=== PATIENT | male | born 1995 | race Caucasian/White ===

== ENCOUNTER 2017-12-02 18:37 | Emergency (ER) | payer OTHER ==
[2017-12-02 18:57] VITALS: RESP 16; TEMP 98.4; O2SAT 99
[2017-12-02] MEDS ORDERED: Oxycodone/Acetaminophen 5/325 mg Tab PO ONE (19:47)
[2017-12-02] MEDS ORDERED: Oxycodone/Acetaminophen 5/325 mg Tab ONE (19:57)
[2017-12-02 21:09] LABS: BASO % 0.4 % (0.0-2.0); EOS # 0.1 K/uL (0.0-0.7); EOS % 1.7 % (0.0-4.0); HEMOGLOBIN 15.4 g/dL (12.0-18.0); LYMPH # 1.9 K/uL (1.0-4.3); LYMPH % 32.5 % (20.0-40.0); MEAN CELL VOLUME 90.7 fl (80.0-94.0); MEAN CORPUSCULAR HEMOGLOBIN 30.8 pg (27.0-31.0); MEAN CORPUSCULAR HGB CONC 33.9 g/dL (33.0-37.0); MEAN PLATELET VOLUME 7.5 fl (7.2-11.7); MONO # 0.5 K/uL (0.0-0.8); MONO % 8.7 % (0.0-10.0); NEUT # 3.2 K/uL (1.8-7.0); NEUT % 56.7 % (50.0-75.0); NRBC % 0.1 % (0.0-0.0); RBC 4.99 Mil/uL (4.40-5.90); RED CELL DISTRIBUTION WIDTH 12.8 % (11.5-14.5); WHITE BLOOD COUNT 5.7 K/uL (4.8-10.8)
--- NOTE | 2017-12-02 21:15 | ED PDOC ---
Lower Extremity Pain/Injury Time Seen by Provider: 12/02/17 19:12 Chief Complaint (Nursing): Lower Extremity Problem/Injury Chief Complaint (Provider): Right great toe pain History Per: Patient History/Exam Limitations: no limitations Onset/Duration Of Symptoms: Days (2) Current Symptoms Are (Timing): Still Present Additional History Per: Patient Additional Complaint(s): 22yo male, comes to ER with complaints of right great toe nail pain x 2 days. Patient states he thought it was an ingrown toe nail and was evaluated by his doctor who gave him Bactrim. Patient states he took the bactrim and feels as if the symptoms have worsened; he reports redness, swelling and increased pain to the right great toe. Patient states he took Motrin with mild relief of pain. Patient denies any injuries, fever, or chills. He has no other complaints. PMD: In [place] Past Medical History Reviewed: Historical Data, Nursing Documentation, Vital Signs Vital Signs: Last Vital Signs Temp 98.4 F 12/02/17 18:55 Pulse 82 12/02/17 18:55 Resp 16 12/02/17 18:55 BP 128/74 12/02/17 18:55 Pulse Ox 99 12/02/17 18:55 - Medical History PMH: No Chronic Diseases Denies: Chronic Kidney Disease - Surgical History Surgical History: No Surg Hx - Family History Family History: States: No Known Family Hx - Immunization History Hx Tetanus Toxoid Vaccination: No Hx Influenza Vaccination: No Hx Pneumococcal Vaccination: No - Home Medications Home Medications: Ambulatory Orders Medication Instructions Recorded traMADol [Ultram] 50 mg PO TID #9 tab 12/02/17 - Allergies Allergies/Adverse Reactions: Allergies Allergy/AdvReac Type Severity Reaction Status Date / Time Penicillins Allergy RASH Verified 12/02/17 18:55 Review of Systems ROS Statement: Except As Marked, All Systems Reviewed And Found Negative Constitutional: Negative for: Fever, Chills Musculoskeletal: Positive for: Other (pain, swelling and redness to right great toe) Physical Exam - Reviewed Nursing Documentation Reviewed: Yes Vital Signs Reviewed: Yes - Physical Exam Appears: Positive for: Non-toxic, No Acute Distress Head Exam: Positive for: ATRAUMATIC, NORMAL INSPECTION, NORMOCEPHALIC Skin: Positive for: Normal Color Eye Exam: Positive for: Normal appearance, EOMI Pulses-Dorsalis Pedis (R): 2+ Extremity: Positive for: Normal ROM (FROM right foot and digits on right foot), Tenderness (diffuse tenderness to right great toe), Capillary Refill (< 2 seconds), Swelling (swelling and erythema to right great toe; erythema also extends from toe to dorsum of foot towards the vasquez.). Negative for: Pedal Edema, Calf Tenderness, Deformity Neurologic/Psych: Positive for: Alert, Oriented (x 3) - Laboratory Results Result Diagrams: 12/02/17 20:39 12/02/17 20:39 - ECG O2 Sat by Pulse Oximetry: 99 (RA) Pulse Ox Interpretation: Normal Medical Decision Making Medical Decision Making: Impression: Paronychia, possible cellulitis Plan: * Labs * Percocet 1 tab PO * XR Right foot 2010 Podiatry resident consulted, and will evaluate patient in ER. 2202 Patient seen and evaluated by podiatry resident and patient to be discharged home. Patient placed in surgical shoe by podiatry resident and instructed to follow up with Dr. Wiley in her office. Patient instructed to continue taking Bactrim as prescribed and informed to use pain medication as prescribed. Scribe Attestation: Documented by Judy Betancourt, acting as a scribe for Sophy Mares MD. Provider Scribe Attestation: All medical record entries made by the Scribe were at my direction and personally dictated by me. I have reviewed the chart and agree that the record accurately reflects my personal performance of the history, physical exam, medical decision making, and the department course for this patient. I have also personally directed, reviewed, and agree with the discharge instructions and disposition. Disposition - Clinical Impression Clinical Impression: Ingrown toenail, Cellulitis of foot - Disposition Referrals: Bob Wiley DPM [Medical Doctor] - Disposition: Routine/Home Disposition Time: 22:03 Condition: GOOD Additional Instructions: Take your medications as instructed. Continue bactrim as instructed. Follow up with [facility] in 2 days. SINGH CROSS, thank you for letting us take care of you today. Your provider was Sophy Mares MD and you were treated for RIGHT FOOT PAIN/POSS INFECTION. The emergency medical care you received today was directed at your acute symptoms. If you were prescribed any medication, please fill it and take as directed. It may take several days for your symptoms to resolve. Return to the Emergency Department if your symptoms worsen, do not improve, or if you have any other problems. Please contact your doctor or call one of the physicians/clinics you have been referred to that are listed on the Patient Visit Information form that is included in your discharge packet. Bring any paperwork you were given at discharge with you along with any medications you are taking to your follow up visit. Our treatment cannot replace ongoing medical care by a primary care provider outside of the emergency department. Thank you for allowing the [facility] team to be part of your care today. If you had an X-Ray or CT scan: A Radiologist will review the ED reading if any change in treatment is needed we will contact you. If you had a blood, urine, or wound culture: It will take several days for the results, if any change in treatment is needed we will contact you. If you had an STI test: It will take 48 hours for the results. Please call after 1 week if you have not heard back. Prescriptions: traMADol [Ultram] 50 mg PO TID #9 tab Instructions: Ingrown Toenail, Ingrown Toenail Removal
[2017-12-02] MEDS ORDERED: Bupivacaine HCl 0.25% PF (30 ml) Inj IJ ONE (21:25)
--- NOTE | 2017-12-02 21:25 | CP.PCM.CON ---
History of Present Illness - History of Present Illness History of Present Illness: Podiatry Consult Note- Dr. Wiley 22 y.o male with no PMH seen and evaluated for right left foot hallux infection. Patient reports that he has recurrent ingrown toe nail which was treated in the past and resolved. Last one was about a few years ago. Patient reports that in the last 24 hours he started having left big toe pain. Reports pain is localized to the big right toe. Reports noticing increase swelling and redness. Reports the redness coming up his leg. Denies seeing any drainage. Patient reports he went to his primary care doctor in which he was instructed to go to the ED. Patient reports he was given Bactrim PO to take. He took his first dose today. Patient also reports that he has been taking Ibuprofen 800 q 4 hours for the pain which does not help. Patient denies nausea, fever, shortness of breath, chest pain or chills. PMH: denies PSH: denies ALL: NKDA MEDS: Ibuprofen FH: father- colon cancer SH: denies smoking, reports socially drinking, denies illicit drug use Past Patient History - Past Social History Smoking Status: Never Smoked - CARDIAC Hx Cardiac Disorders: No - PULMONARY Hx Respiratory Disorders: No - NEUROLOGICAL Hx Neurological Disorder: No - HEENT Hx HEENT Problems: No - RENAL Hx Chronic Kidney Disease: No - ENDOCRINE/METABOLIC Hx Endocrine Disorders: No - HEMATOLOGICAL/ONCOLOGICAL Hx Blood Disorders: No - INTEGUMENTARY Hx Dermatological Problems: No - MUSCULOSKELETAL/RHEUMATOLOGICAL Hx Musculoskeletal Disorders: No - GASTROINTESTINAL Hx Gastrointestinal Disorders: No - GENITOURINARY/GYNECOLOGICAL Hx Genitourinary Disorders: No - PSYCHIATRIC Hx Psychophysiologic Disorder: No Hx Substance Use: No - SURGICAL HISTORY Hx Surgeries: No - ANESTHESIA Hx Anesthesia: No Meds Home Medications: Home Medication List Medication Instructions Recorded Confirmed Type traMADol [Ultram] 50 mg PO TID #9 tab 12/02/17 Rx Allergies/Adverse Reactions: Allergies Allergy/AdvReac Type Severity Reaction Status Date / Time Penicillins Allergy RASH Verified 12/02/17 18:55 Physical Exam - Constitutional Appears: Well, Non-toxic, No Acute Distress - Extremities Exam Extremities exam: Negative for: calf tenderness Additional comments: VASC: DP and PT 2/4 bilaterally, CFT < 3 seconds x 10 digits, temperature gradient warm to cool from proximal knees to distal toes, localized nonpitting edema to the right hallux ORTHO: severe pain with palpation to the right hallux, worse at the lateral aspect of the hallux, MM is 5/5 in all four compartments dorsiflexion, plantarflexion, inversion and eversion NEURO: gross and protective sensation intact bilaterally DERM: erythema noted to the entire right hallux, one ascending erythema streaking noted to dorsum of the foot to the level of the ankle, no drainage, no purulence, slightly increase warmth, ingrown hallux toe nail noted to the medial aspect of nail plate, no abscess, no fluctanance - Neurological Exam Neurological exam: Alert, Oriented x3 Results - Vital Signs Recent Vital Signs: Last Vital Signs Temp 98.4 F 12/02/17 18:55 Pulse 82 12/02/17 18:55 Resp 16 12/02/17 18:55 BP 128/74 12/02/17 18:55 Pulse Ox 99 12/02/17 21:15 - Labs Result Diagrams: 12/02/17 20:39 12/02/17 20:39 Labs: Laboratory Results - last 24 hr 12/02/17 20:39 WBC 5.7 RBC 4.99 Hgb 15.4 Hct 45.3 MCV 90.7 MCH 30.8 MCHC 33.9 RDW 12.8 Plt Count 214 MPV 7.5 Neut % (Auto) 56.7 Lymph % (Auto) 32.5 [place] % (Auto) 8.7 Eos % (Auto) 1.7 Baso % (Auto) 0.4 Neut # (Auto) 3.2 Lymph # (Auto) 1.9 [place] # (Auto) 0.5 Eos # (Auto) 0.1 Baso # (Auto) 0.0 Assessment & Plan - Assessment and Plan (Free Text) Assessment: 22M no PMH for right hallux paronychia and cellulitis secondary to onychocryptosis Plan: Patient is seen and examined Chart, labs, vitals reviewed Absent leukocytosis, afebrile X-rays of right foot- no osteomyelitis, no gas emphysema noted, WNL- reviewed by me Explained to patient about lateral border partial nail avulsion Patient explained the benefits, risks, alternatives, and complications for procedure. Patient understands and agreeable to procedure. All questions/ concerns addressed Prep hallux with betadine, injected total of 9 cc of .25% marcaine plain in a local hallux block fashion The freer was used to free the lateral nail plate from nail bed back to the nail matrix. Using the [place] Sheyla, the toenail was cut to separate the ingrown portion from the healthy portion. A straight hemostat was then advanced under the free portion of the nail, as far as possible to grab the entire nail. It was then clamped down on this free nail segment and twisted and turned until the entire piece of toenail was removed. The entire piece was confirmed to be fully removed intact. No purulence drainage noted; drainage sangious in nature Cleansed with copious amounts of saline Hemostasis was achieved through direct pressure. Dressed with Bacitracin, dsd, and kerlix Dispense surgical shoe WBAT in surgical shoe Instructed on aftercare. Including keeping dressing on clean, dry, and intact for 24 hours. Cleansed site and change dressing daily with triple antibiotics. After 4 days, patient may start soaking in Epsom salt. RICE protocol Continue to take Bactrim until completion Advised patient to STOP taking Ibuprofen 800mg q 4 hours because exceeding maximum dose 3200mg/day Recommended ED to give alternative pain medication to patient Patient instructed to follow up with Dr. Wiley in office in 1 week Thank you for allowing us to participate in patient's care Please reconsult as needed. Thank you
[2017-12-02 21:36] LABS: BLOOD UREA NITROGEN 17 mg/dl (9-20); CALCIUM 9.2 mg/dL (8.4-10.2); GFR AFRICAN-AMERICAN > 60; GFR NON-AFRICAN AMERICAN > 60
[2017-12-02] MEDS ORDERED: Povidone Iodine Oint 10% Foilpak UD ONE (21:37)
[2017-12-02] MEDS ORDERED: Bupivacaine HCl 0.25% PF (30 ml) Inj ONE (21:40)
[2017-12-02 22:40] VITALS: BP 122/71; PULSE 72
--- NOTE | 2017-12-03 10:20 | RAD ---
PROCEDURE: Radiographs of the right great toe. TECHNIQUE:: AP radiograph of the right foot, with oblique and lateral view of the right great toe. COMPARISON: None. FINDINGS: BONES: Normal. No fracture. JOINTS: Normal. SOFT TISSUES: Normal. OTHER FINDINGS: None. IMPRESSION: Normal right great toe radiographs.
== END 2017-12-02 22:40 | disposition home or self-care (01) ==
LOC: H.ER 18:37
DX: L60.0 Ingrowing nail (principal); L03.111 Cellulitis of right axilla; Z88.0 Allergy status to penicillin